=== PATIENT | female | born 1940 | race Caucasian/White ===

== ENCOUNTER 2024-04-12 06:28 | Emergency (ER) | payer OTHER, SELFPAY ==
--- NOTE | 2024-04-12 06:30 | RT ---
0624 - RT responded to rapid response call. Helped the pt get a wheelchair. Pt alert, airway patent, no apparent respiratory distress noted. Nursing staff arrived scene. Pt was taken to ER to get checked in. No respiratory care interventions required.
--- NOTE | 2024-04-12 06:35 | DI.CT.S_ITS ---
PROCEDURE: CT HEAD/BRAIN WO CON INDICATIONS: fall with head injury TECHNIQUE: Noncontrast 4.5 mm thick angled axial sections acquired from the foramen magnum to the vertex, with coronal and sagittal reformats. For radiation dose reduction, the following was used: automated exposure control, adjustment of mA and/or kV according to patient size. COMPARISON: None. FINDINGS: Image quality: Diagnostic. CSF spaces: Basal cisterns are patent. No extra-axial fluid collections. The ventricles are symmetric in size and shape. Brain: No intracranial bleeds or masses. There is cerebral volume loss for age, with resultant ventricular and sulcal prominence. There are periventricular and deep white matter chronic small vessel ischemic changes. There is intracranial internal carotid artery atherosclerosis. Skull and face: Calvarium and visualized facial bones appear intact, without suspicious lesions. Sinuses: Visualized sinuses and mastoids are clear. IMPRESSION: No evidence acute intracranial process. Comment: Final report is concordant with preliminary interpretation provided by [facility]. Dictated by: Eliu Sandoval M.D. on 04/12/2024 at 7:37 Approved by: Eliu Snadoval M.D. on 04/12/2024 at 7:37
--- NOTE | 2024-04-12 06:38 | ED_ITS ---
HPI - General Adult <Casey Waldron DO - Last Filed: 04/12/24 17:45> General Chief complaint: Fall Stated complaint: ground level fall hit her head Time Seen by Provider: 04/12/24 06:31 Source: patient Mode of arrival: Ambulatory Limitations: no limitations History of Present Illness HPI narrative: 84-year-old female. Not on anticoagulation who is here for evaluation of a head/facial injury. She was walking into the emergency department today for surgery this morning. She was scheduled to have hip replacement. She states she tripped and fell over the rug that was on the ground. She did not lose consciousness. She does sustained a bruise to the right side of her face. No neck pain. No extremity injuries. Related Data Home Medications Medication Instructions Recorded Confirmed acetaminophen 325 mg capsule 1,000 mg PO BEDTIME 04/05/24 04/12/24 (Tylenol) atorvastatin 40 mg tablet 40 mg PO DAILY 04/05/24 04/12/24 estradiol 0.05 mg-norethindrone 1 patch transdermal 2XW 04/05/24 04/12/24 0.14 mg/24 hr semiwkly transderm patch (CombiPatch) gabapentin 100 mg capsule 100 mg PO 3XD 04/05/24 04/12/24 levothyroxine 75 mcg tablet 75 mcg PO DAILY 04/05/24 04/12/24 (Synthroid) Allergies Allergy/AdvReac Type Severity Reaction Status Date / Time No Known Drug Allergies Allergy Verified 04/12/24 07:53 Review of Systems <DO Augustina Jones Last Filed: 04/12/24 17:45> Review of Systems Narrative: See HPI Patient History <DO Augustina Jones Last Filed: 04/12/24 17:45> Medical History [employer] (hard of hearing) Skin cancer Hypercholesteremia Hypothyroid Surgical History (Updated 04/05/24 @ 09:15 by Danielle Caban RN) H/O arthroscopic knee surgery History of tonsillectomy Social History household members: none Smoking Status: Former smoker alcohol intake: current Smoking Status: Former smoker alcohol intake frequency: holidays/special occasions only Substance Use Type: does not use Exam <DO Augustina Jones Last Filed: 04/12/24 17:45> Initial Vital Signs Initial Vital Signs: Vital Signs Temperature 97 F L 04/12/24 06:40 Pulse Rate 74 04/12/24 06:40 Respiratory Rate 18 04/12/24 06:40 Blood Pressure 160/90 H 04/12/24 06:40 Pulse Oximetry 100 04/12/24 06:40 Oxygen Delivery Method Room Air 04/12/24 06:40 Const General: cooperative, comfortable and No ill appearing HENDC Head: normal to inspection and normocephalic Face and sinus: other (Contusion over right cheek bone) Mouth: oral mucosae normal Eyes Pupils: PERRL EOM: EOM intact bilaterally Resp Effort & Inspection: normal respiratory effort Skin Other: Superficial contusion of her right cheekbone Neuro General: patient alert, patient awake, patient oriented x3 and moves all extremities <Salvador Edwards MD - Last Filed: 04/12/24 07:59> Initial Vital Signs Initial Vital Signs: Vital Signs Temperature 97 F L 04/12/24 06:40 Pulse Rate 74 04/12/24 06:40 Respiratory Rate 18 04/12/24 06:40 Blood Pressure 160/90 H 04/12/24 06:40 Pulse Oximetry 100 04/12/24 06:40 Oxygen Delivery Method Room Air 04/12/24 06:40 Scores <Casey Waldron DO - Last Filed: 04/12/24 17:45> [place] CT Head Rule Age <16 years old: No Patient on blood thinners: No Seizure after injury: No Exclusion: Patient NOT Excluded, Proceed to next steps GCS < 15 at 2 hr post trauma: No Suspected open or depressed skull fracture: No Any sign of basilar skull fracture (hemotympanum, raccoon eyes, Patrick's sign, CSF anita-/rhinorrhea): No Two or more episodes of vomiting: No Age greater or equal to 65 years: Yes Retrograde amnesia to the event greater or equal to 30 min: No Dangerous Mechanism (pedestrian vs. mv, occupant ejected from mv, fall from >3 ft or > 5 stairs): No Recommendation: Consider CT. The [place] Head CT Rule cannot rule out need for Imaging. GCS Giuseppe coma scale eye opening: Spontaneous Ridgeley coma scale verbal response: Orientated Giuseppe coma scale motor response: Obey commands Ridgeley coma scale total score: 15 Nexus Score for C-Spine Focal Neurologic deficit present: No Midline spinal tenderness present: No Altered level of conciousness present: No Intoxication present: No Distracting Injury Present: No Nexus Criteria for C-spine: 0 <Salvador Edwards MD - Last Filed: 04/12/24 07:59> [place] CT Head Rule Exclusion: Patient NOT Excluded, Proceed to next steps Recommendation: Consider CT. The [place] Head CT Rule cannot rule out need for Imaging. GCS Giuseppe coma scale total score: 15 Nexus Score for C-Spine Nexus Criteria for C-spine: 0 Course <Casey Waldron DO - Last Filed: 04/12/24 17:45> Orders Ordered: ED Orders 04/12/24 06:35 CT head/brain wo con Stat Vital Signs Vital signs: Vital Signs - 8 hr 04/12/24 06:40 04/12/24 07:17 Temperature 97 F L Pulse Rate 74 71 Respiratory Rate 18 16 Blood Pressure 160/90 H 164/90 H Pulse Oximetry 100 96 Oxygen Delivery Method Room Air Room Air <Salvador Edwards MD - Last Filed: 04/12/24 07:59> Orders Ordered: ED Orders 04/12/24 06:35 CT head/brain wo con Stat Vital Signs Vital signs: Vital Signs - 8 hr 04/12/24 06:40 04/12/24 07:17 Temperature 97 F L Pulse Rate 74 71 Respiratory Rate 18 16 Blood Pressure 160/90 H 164/90 H Pulse Oximetry 100 96 Oxygen Delivery Method Room Air Room Air Medical Decision Making <Casey Waldron DO - Last Filed: 04/12/24 17:45> [facility] Narrative Medical decision making narrative: This was obviously a mechanical fall. Given her age and the fact that she does have a contusion of the right side of her cheek a CT scan of the head was ordered. Cervical spine was cleared by nexus criteria. No extremity injuries. <Salvador Edwards MD - Last Filed: 04/12/24 07:59> Imaging Data CT scan - head: Radiologist's Impression: No acute finding [facility] Narrative Medical decision making narrative: This was obviously a mechanical fall. Given her age and the fact that she does have a contusion of the right side of her cheek a CT scan of the head was ordered. Cervical spine was cleared by nexus criteria. No extremity injuries. After history and exam CT head [facility] Medical records reviewed: No recent visit with a complaint Differential considered: Includes but not limited to facial fracture/intracranial bleed/concussion/facial contusion Lab Test results independently reviewed as above. Pertinent findings: None indicated Independently reviewed EKG none indicated Imaging studies independently reviewed: CT head no acute finding Consultations: Patient to see orthopedic surgeon and anesthesia this morning after discharge Treatments: None indicated Re-evaluations: 7:22 a.m.. Updated patient and family at bedside. Imaging is reassuring exam is reassuring. Patient to go to the operating room now to speak with her surgeon and anesthesia Discussion: Appropriate for discharge home exam and imaging is reassuring. Patient to see Orthopedic surgery and anesthesiologist this morning Diagnosis: Facial contusion 7:00 a.m.. Grace: ?sign out from Dr Waldron, CT imaging is pending. Orthopedics and anesthesia had been waiting to find out for results of CT for surgery this morning. Discharge Plan Departure Patient Disposition: Home Clinical Impression: Contusion of face Qualifiers: Encounter type: initial encounter Qualified Code(s): S00.83XA - Contusion of other part of head, initial encounter Instructions: DI for Contusion, DI for Closed Head Injury Activity Restrictions/Additional Instructions: Your exam and CT scan imaging are reassuring. Please see anesthesia and your surgeon this morning for further plans of your surgery. Return if worse if any questions or concerns Prescriptions: No Action atorvastatin 40 mg tablet 40 mg PO DAILY levothyroxine [Synthroid] 75 mcg tablet 75 mcg PO DAILY gabapentin 100 mg capsule 100 mg PO 3XD CombiPatch 0.05-0.14 mg/24 hr patch semiweekly 1 patch transdermal 2XW acetaminophen [Tylenol] 325 mg Capsule 1,000 mg PO BEDTIME Referrals: Dolores Alcala PA-C [Primary Care Provider] - Stand Alone Forms: Patient Portal/API
[2024-04-12 06:40] VITALS: BP 160/90; PULSE 74; RESP 18; TEMP 36.1; O2SAT 100; BMI 52.2
[2024-04-12 07:17] VITALS: BP 164/90; PULSE 71; RESP 16; O2SAT 96
--- NOTE | 2024-04-12 07:24 | PC.NURSE ---
Pt DC'd from ED. OR charge called and made aware pt is ready for transport to surgery this morning to replace L hip. Pt AAOx3, ambulated to wheelchair for transport to surgery.
== END 2024-04-12 07:25 | disposition home or self-care (01) ==
PROVIDERS: Emergency Provider Emergency Medicine; PCP Physician Assistant; Referring Provider Emergency Medicine
DX: S00.83XA Contusion of other part of head, initial encounter (principal); W18.30XA Fall on same level, unspecified, initial encounter
CPT/HCPCS: 70450; 99281

== ENCOUNTER 2024-04-12 07:38 | Day surgery (SDC) | payer OTHER, SELFPAY ==
[2024-04-05 08:22] VITALS: BMI 24.5
[2024-04-12] VITALS (13 sets, daily range): BP systolic 94–168; BP diastolic 64–103; PULSE 55–109; RESP 14–19; TEMP 36–37.2; O2SAT 95–99; BMI 25.2; BMI 24.9
--- NOTE | 2024-04-12 | DI.RAD.S_ITS ---
PROCEDURE: [id number] W PEL IF PERFORMED INDICATIONS: ANTERIOR TOTAL LEFT HIP TECHNIQUE: 5 intraoperative fluoroscopic images of left hip. COMPARISON: None. FINDINGS: Intraoperative fluoroscopic images shows left total hip arthroplasty. Left hip alignment is anatomic. IMPRESSION: Fluoro guidance was provided intraoperatively for left total hip arthroplasty. Dictated by: Luiz Atkins M.D. on 04/12/2024 at 12:12 Approved by: Luiz Atkins M.D. on 04/12/2024 at 12:12
--- NOTE | 2024-04-12 06:00 | DI.RAD.S_ITS ---
PROCEDURE: XR HIP W PEL IF DONE LT 2V INDICATIONS: total left hip anterior post op TECHNIQUE: 2 views of the hip were acquired. COMPARISON: [facility], CR, [id number] W PEL IF PERFORMED, 04/12/2024, 9:34. FINDINGS: Bones: Left hip arthroplasty. Moderate right hip arthrosis. Soft tissues: Postoperative changes IMPRESSION: Postoperative changes following left hip arthroplasty. Dictated by: Iftikhar Salinas M.D. on 04/16/2024 at 12:18 Approved by: Iftikhar Salinas M.D. on 04/16/2024 at 12:19
--- NOTE | 2024-04-12 07:32 | SUR.OPER ---
Supine on padded [place] table with bilateral legs secured in padded positioning boots and suspended in positioning spars, operative leg in traction per surgeon. Head on one pillow. Arms secured on padded armboards<90 degrees abduction. Padded perineal post in place per surgeon.
--- NOTE | 2024-04-12 07:39 | PM.PREOP ---
Pre-operative Note Interval Note History & Physical reviewed/Exam performed by Physician: Yes Changes to H&P: Yes H&P completed within 30 days and has changed as indicated here:: Cecile fell coming into the hospital today for her elective hip surgery and hit her head. A rapid response was called and a CT scan of her head was obtained which was normal. I saw her in the preoperative holding area. She is mentating appropriately and at her baseline. She had no discernible signs of a concussion or of facial trauma other than a bruise over her orbit. I performed a brief neurological exam including having her track my fingers during stereotyped movements with her eyes to observe her ophthalmologic tracking which was normal. She reports that I feel fine and is eager to move forward with surgery. Given the normal head CT scan we will proceed as originally planned.
[2024-04-12] MEDS: ACETAMINOPHEN 325 MG TABLET 975 MG PO (07:44)
[2024-04-12] MEDS: MELOXICAM 7.5 MG TABLET PO (07:45)
[2024-04-12] MEDS: LACTATED RINGERS 1,000 ML 42 ML IV ×2 (07:45→09:16)
--- NOTE | 2024-04-12 08:16 | SUR.PREOP ---
Patient delayed to pre-op area by 60 minutes after suffering a mechanical fall in the main entrance; patient evaluated by ER physician with no acute injury and cleared for surgery to proceed by ER physician, Orthopedic Surgeon, Dr Mi; and anesthesia provider, Sharron Grayson CRNA; family and patient agreeable to proceeding as planned.
[2024-04-12] MEDS: CEFAZOLIN 2 GM/100 ML PREMIX 100 ML IV ×2 (08:25→16:46)
[2024-04-12] MEDS: TRANEXAMIC ACID 1,000 MG VIAL 1000 MG INJ ×2 (08:30→09:56)
[2024-04-12] MEDS: ROPIVACAINE/EPI/CLONIDINE/KET 50 ML SYRINGE INJ (08:46)
--- NOTE | 2024-04-12 10:00 | P.OP_ITS ---
Operative Date/Time/Diagnoses Date of procedure: 04/12/24 Pre-op diagnosis: Left hip osteoarthritis Post-op diagnosis: same Procedure & Clinicians Procedure: Left total hip arthroplasty with placement of cerclage cable for calcar split Same procedure as scheduled: Yes Surgeon: Indio Mi Graduate Recruiter: Sandra Diaz Anesthesia Type: General, Spinal and Local Operative Notes Estimated Blood Loss (mL): 350 Procedure in detail: Left Uncemented Direct Anterior Depuy Total Hip Arthroplasty: Implants: * [place] Gription size 52 cup? * Actis femoral stem size 9 high offset? * 36 mm +1.5 ceramic femoral head? Procedure Summary: This 84-year-old female patient had left hip arthritis and was counseled extensively regarding elective total hip arthroplasty. I obtained a DEXA scan of her left hip for preoperative planning purposes which indicated that she had a high T-score for her age, indicative of overall good bone quality. I therefore elected to utilize uncemented fixation for her stem side during today's procedure. As she was walking into the hospital today she caught her foot on the carpet and fell, hitting her head. A rapid response was called and a CT scan of her head was obtained which was normal. I evaluated her and found her to be at her baseline mental status. Given her normal CT scan and normal neurologic status we discussed the situation with the patient and she wished to proceed with the surgery as previously scheduled. Intraoperatively I found that the templates was likely undersized as her cup was 1 size larger than the templated size. After broaching to my templated size I found that this had sunk further than anticipated based on my neck cut so I went 1 size up on the stem as well. After trialing the hip I found it reduction was difficult, leg length appeared to have been increased relative to the nonoperative side, and offset was diminished. I therefore planned to sink the size 9 broach further down the canal to decrease leg lengths and moved from a standard offset to a high offset stem. During the process of sinking the broach I noted a split in the calcar. This was nondisplaced. I returned to neutral hip extension and placed a calcar cable before placing definitive implants. I did obtain a fluoroscopic image with no broach in place to demonstrate a lack of propagation of the calcar split down the femur. I dissected down the femur to identify the full extent of it. I will have the patient remain in the hospital overnight given the fall she had this morning as she has clearly a fall risk. She will still be weight-bearing as tolerated. I will still plan to discharge her home, hopefully tomorrow, but if she is having any difficulty mobilization I would not hesitate to keep her in the hospital until Monday. Procedure in Detail: This patient was seen preoperatively and evaluated for hip pain which was refractory to numerous nonoperative treatment modalities. Their hip pain correlated with radiographic changes demonstrating significant degeneration in the hip joint. The risks and benefits of continued nonoperative management versus operative management were discussed at length and all of the patient?s questions were answered. Additional educational materials providing further details beyond our discussion in clinic were provided via a publicly available patient education video which included the incidence of medical complications associated with total hip arthroplasty, reasons for revision following total hip arthroplasty, and patient satisfaction rates following total hip arthroplasty. T hat video can be accessed at [email or web address] . With this understanding of the risks inherent to the procedure, the patient elected to move forward with operative management. Following preoperative optimization, the patient was scheduled for surgery. The patient was met in the preoperative holding area the day of the procedure and all questions were answered. The patient?s nares were swabbed with betadine in order to decolonize them from MRSA. Informed consent was signed and the left limb was marked with indelible ink.? The patient was brought back to the operating room where anesthesia was induced. The patient was transferred to the Grafton table and all bony prominences were padded. The operative site was prepped and draped in the usual sterile fashion. Prior to incision, tranexamic acid and cefazolin were administered. Operative templating images were displayed demonstrating the anticipated implant sizes and correct operative extremity. A timeout procedure was performed verifying the patient?s identity, medical comorbidities, allergies, relevant medications, anesthesia type and the surgical plan. All present were in agreement. The assistance of a physician switchboard operator assistant was required for positioning, room setup, soft tissue retraction and wound closure. Without this assistance, the procedure would have been significantly more challenging and time consuming.?? A direct anterior approach to the hip was utilized. This was performed with a longitudinal incision through a Heuter interval. The incision was planned 2 cm distal and 2 cm lateral to the ASIS extending towards the lateral patella, in line with the muscle body of the TFL. Following incision, the subcutaneous tissue was dissected while taking care to avoid injury to the lateral femoral cutaneous nerve. The fascia overlying the TFL was identified by dissecting off the overlying fat and identifying perforating vessels to the TFL. The TFL fascia was incised and dissected away from the medial border of the TFL. A cobra retractor was placed over the superior femoral neck between the abductors and the hip capsule and used to reflect the TFL laterally. A [place] self-retainer was then placed in the distal aspect of the wound between the TFL and the rectus femoris. This was tensioned to open up the direct anterior interval and the lateral circumflex vessels were identified and coagulated using electrocautery. The floor of the TFL fascia was incised, exposing the pericapsular fat overlying the hip capsule. A second cobra retractor was placed on the inferior femoral neck. A double-bent soft tissue retractor was placed on the anterior wall of the acetabulum and used to tension the reflected head of rectus femoris, which was then released in order to limit soft tissue tension. A capsulotomy was made in the midline of the anterior hip capsule in line with the femoral neck ending at the vastus tubercle. The double-bent retractor was removed in order to limit the amount of time that a soft tissue retractor remained on the anterior wall and protect the femoral nerve. Tag stitches were placed in the superior and inferior leaflets of the hip capsule. An [place] soft tissue retractor was introduced over the tag stitches and tensioned in the interval between the rectus femoris and the TFL in order to retract and protect those muscles. The cobra retractors were replaced intracapsularly, with one over the superior neck in the pocket created by the base of the greater trochanter and the other on the femoral head. The capsulotomy was extended laterally to the base of the greater trochanter and medially to the lesser trochanter. This required externally rotating the hip. Once the lesser trochanter had been identified, a neck cut was planned according to measurements from preoperative templating. A ruler was cut at the length measured between the superior aspect of the lesser trochanter and the collar of the prosthesis. This line was extended towards the inferior aspect of the lateral cobra retractor to plan a cut which would leave minimal residual femoral neck laterally. The neck was cut at 60 degrees of external rotation along that line. A second cut was performed to remove a large napkin ring and facilitate head extraction. The napkin ring cut and femoral head were removed.?? A broad anterior wall retractor was placed between the labrum and the anterior capsule so that the anterior capsule would prevent capturing and pinching the femoral nerve anteriorly. An additional retractor was placed on the posterior wall. External rotation and traction were applied through the G[place]on table so that the cut surface of the femoral neck would not restrict access to the acetabulum. The labrum was excised sharply and the pulvinar was excised with electrocautery to limit bleeding from branches of the obturator artery. Acetabular reamers were selected based on preoperative templating and measurements of the excised femoral head. These were introduced into the acetabulum. Fluoroscopy was utilized to replicate a standing AP pelvis radiograph by centering over the pelvis, rotating until there was appropriate symmetry between the obturator foramen, and introducing caudal tilt to match the position of the pubic symphysis relative to the sacrococcygeal junction according to the patient?s anatomy. Fluoroscopy was utilized to ensure appropriate reaming depth. Once satisfied with the reaming depth corresponding to the preoperative template and the pinch fit between the columns, an appropriate sized acetabular cup was selected which would provide 1 mm of press-fit. This cup was introduced and manipulated until appropriate abduction and anteversion angles were obtained with careful attention to appropriate abduction and anteversion angles as evaluated by the position of the cup relative to the anterior and posterior lopez of the acetabulum and the AP fluoroscopy which recreated the patient?s standing radiograph. The cup was impacted into place. Peripheral osteophytes were removed. The acetabular liner was then placed with care to ensure locking of the locking mechanism.? Attention was then turned to the femur. All retractors were removed, traction was released, a retractor was placed in the interval between the hip capsule and the gluteus minimus, and the hip was externally rotated to 90 degrees. Traction was applied through the Grafton table to tension the lateral capsule and this was released using electrocautery. Traction was released and a [place] hook was placed posteriorly around the proximal femur at the level of the vastus ridge. The table height was lowered in order to restrict the tension on the anterior structures during hip hyperextension to limit the risk of femoral nerve palsy. With traction off and the hip at 90 degrees of external rotation, the hip was hyperextended and adducted while manually elevating the femur away from the acetabulum with the G[place]on hook to ensure it would not be caught behind the greater trochanter. An asymmetric retractor was placed over the calcar and a broad double-pronged retractor was placed over the greater trochanter. The tag stitch capturing the lateral leaflet of the capsule was moved to the medial side, leaving the conjoined and piriformis tendons isolated in the face of the greater trochanter. The hip was externally rotated and elevated. A release of the conjoined tendon was not necessary in order to obtain adequate exposure for broaching. The canal was opened with an opening broach and a rasp was used to remove cancellous bone. A rongeur was used to remove the residual lateral bone at the base of the greater trochanter to avoid placing the stem in varus. The femur was then broached to the appropriate sized stem yielding good rotational fit and fill of the canal as well as appropriate version of the stem trial. Neck and head trials were placed, all retractors were removed and the hip was returned to neutral abduction and extension. I then reduced the hip. Initial trialing was performed with a size 9 broach, a standard offset neck and a +1.5 head. I initially attempted to reduce the hip myself and found that I could not get it reduced without the aid of an switchboard operator assistant through the fracture table. The hip was stable with maximum external rotation. I then locked the hip in 45 degrees of external rotation and dropped it to the floor with traction off which demonstrated no instability. An AP pelvis fluoroscopic image matching the preoperative standing radiograph with both lesser trochanters visible and both hips in 40 degrees of external rotation demonstrated that the operative site was slightly long and it offset was diminished. AP and lateral hip fluoroscopic images were obtained to evaluate the broach size which demonstrated that I could likely sink the broach slightly further down the canal. The hip was dislocated and I returned to the broaching position. Based on my evaluation during initial trialing I planned to sink the size 9 broach slightly further, calcar planed, transitioned to a high offset stem to add offset, and used the additional broach depth to compensate for her excessive leg length. During this process I noted a split in the calcar. This was nondisplaced. I removed the broach, dissected to the full extent of the split and returned to neutral extension. I passed a cable around the femur and tensioned this ensuring that it was across the area where the calcar split had occurred. I then returned to the broach in position, we broached with the size 9 broach to ensure maximum canal fill, repeated the calcar planning process, and inserted the size 9 high offset stem. The definitive stem was placed and the trunnion was cleaned and dried. I placed a ceramic head onto the trunnion and impacted it into place on the [place] taper.?? All retractors were removed and the hip was reduced. A dilute mixture of betadine and peroxide was used to bathe the soft tissues during final fluoroscopic assessment. Appropriate component positioning was confirmed on an AP pelvis radiograph with the operative and nonoperative legs in 40 degrees of external rotation, evaluating leg length and offset. Appropriate stem fill was evaluated on AP and lateral hip radiographs. No fractures were identified on these radiographs. There was no hip instability with maximum (115?) external rotation as well as a 45 degree drop test. The hip was copiously irrigated with pulse lavage. The capsule was closed with absorbable interrupted suture. The TFL fascia was closed with barbed suture while carefully protecting the lateral femoral cutaneous nerve from entrapment. A mixture of Ropivacaine, Epinephrine, Clonidine and Toradol was infiltrated throughout the soft tissues. The skin was closed with 2-0 and 3-0 sutures. Surgical glue was applied and a soft dressing was placed.??The sponge, instrument and needle counts were reported as being correct at the end of the case.??No obvious complications occurred. The patient was transferred from the [facility] back to a stretcher. The patient emerged from anesthesia without difficulty and was taken to the PACU in a stable condition.? Plan for aftercare: * Anterior hip precautions * Weightbearing as tolerated * Aspirin 81 twice per day for DVT prophylaxis * Anticipate discharge home Monday or Monday * Change into normal clothes upon arrival on the hospital floor * Mobilize in the halls as much as is logistically possible. If physical therapy is unavailable for mobilization, then patient should mobilize with nursing staff * Multimodal pain regimen with no IV opioids ordered * Apply ice machine to operative hip. Ensure that sufficient ice is in the chamber for the pad to remain cold * Follow up at [facility] in 2 weeks * Detailed postoperative instructions available at [email or web address]
[2024-04-12] MEDS: HYDROMORPHONE 1 MG INJ IV ×4 (10:50→11:05)
[2024-04-12] MEDS: fentaNYL 100 MCG/2 ML INJ IV ×4 (10:50→11:05)
[2024-04-12] MEDS: hydrOXYzine 50 MG/ML INJ 25 MG IM (10:55)
[2024-04-12] MEDS: IBUPROFEN 600 MG TABLET PO (12:45)
[2024-04-12] MEDS: OXYCODONE IR 5 MG TABLET PO ×2 (12:45→16:44)
[2024-04-12] MEDS: LACTATED RINGERS 1,000 ML 100 ML IV (12:51)
--- NOTE | 2024-04-12 14:50 | PT.IIE ---
Current Diagnoses Unilateral primary osteoarthritis, left hip (04/12/24) Surgery Performed Operation Date: 04/12/24 07:45 Actual Procedures p Total Hip Arthroplasty/Anterior Approach(Left) - Indio Mi MD Surgical History (Last Updated 04/05/24 @ 09:15 by Danielle Caban, LUCIA) H/O arthroscopic knee surgery History of tonsillectomy Medical History (Last Reviewed 04/12/24 @ 06:40 by Casey Waldron DO) [place] (hard of hearing) Hypercholesteremia Hypothyroid Skin cancer Physical Therapy Inpatient Evaluation/Re-Eval M1 PT/OT-IP Prior Functional Status Start: 04/12/24 16:05 Freq: NEEDED Status: Active Protocol: Document 04/12/24 14:50 AB (Rec: 04/12/24 16:18 AB [id number]) Medical Review Prior Functional Status Medical History Reviewed Yes Communication able to make needs known; with confusion Mobility and Gait pt stated that she was modified independent with all mobilities and ambulation without AD but occasionally uses a FWW depending on hip pain Social History Household Members none Living Arrangements House Number of Floors (Floors) One Floor Number of Stairs To Enter/Railing? 4 steps Bwide rails to enter the house Home Environment High Toilet,Walk in Shower,Tub /Shower Doors,Built-In Shower Seat Home Equipment Front Wheel Walker,Hand Held Shower Additional Social History Comment daughter( from [place]) stated that she will be staying with pt for ~ 1 month to assist her M2 PT-IP Current Condition Start: 04/12/24 16:05 Freq: NEEDED Status: Active Protocol: Document 04/12/24 14:50 AB (Rec: 04/12/24 16:18 AB [id number]) Physical Therapy Current Condition Current Condition Evaluation Date 04/12/24 Treatment Diagnosis s/p L LIZETH anterior; difficulty in walking Onset Date 04/12/24 M3 PT-IP Subjective Start: 04/12/24 16:05 Freq: NEEDED Status: Active Protocol: Document 04/12/24 14:50 AB (Rec: 04/12/24 16:18 AB [id number]) Subjective Physical Therapy Visit Type Type Initial Evaluation Visit Start Time 14:50 Visit Stop Time 15:55 Number of FLYING I INSTRUCTOR Visits 0 Physical Therapy Visit Comments Patient Comments agreeable to do PT Therapy Pain Assessment Pain When Pain Assessed At Rest Location Left Hip Scale Used increases with mobility: lots o f pain per pt with movement Pain Management Techniques Apply Cold,Distraction, Modification of Treatment,Re- positioning,Timing of Activity with Medications M4 PT-IP Mobility and Gait Start: 04/12/24 16:05 Freq: NEEDED Status: Active Protocol: Document 04/12/24 14:50 AB (Rec: 04/12/24 16:18 AB [id number]) PT-Bed Mobility Assessment Supine to Sit Supine to Sit Maximum Assistance,1 Person Assistance,Bedrails Sit to Supine Sit to Supine Maximum Assistance,1 Person Assistance,Bedrails PT-Transfer Assessment Sit to and From Stand Sit to and from Stand Maximum Assistance,1 Person Assistance,2 Person Assistance ,Use of Upper Extremities Equipment Transfer Assistive Device Gait Belt,Front Wheeled Walker Orthotic/Prosthetic Devices or Brace: No Comments Mobility Comments pt in bed asleep. woke pt up. pt with confusion and needs clarification with all info provided. obtained PLOF and home set up. educated pt regarding L hip anterior precautions. pt with confusion and memory issues and needs cues for precautions and safety with all tasks. pt restless with c/o increase L hip pain and wants to move and get up. pt completed supine to sit max A and max cues. pt sat on EOB. max A for scooting and positioning in bed. pt used bed rail for sitting balance. completed sit to stand x 2 attempts requiring max A x 1-2 and max cues. pt ambulated in room using FWW mod A and max cues ~ 12 ft. pt sat on EOB. completed sit to supine max A for LE elevation to bed and max cues. positioned pt in bed . call light and table placed within reach. pt agreed to do caregiver training and gave PT permission to call her daughter. called pt's daughter Michael will come in tomorrow at ~ 9 am for caregiver training. Gait Assessment Gait Gait Assistance Required: Moderate Assistance,1 Person Assist Distance (Feet) 12 Able to Maintain Weight Bearing Status Yes During Gait Assistive Devices Assistive Device Gait Belt,Front Wheeled Walker Orthotic/Prosthetic Devices or Brace: No Factors Limiting Gait Function Factors Limiting Gait Function Decreased Activity Tolerance, Decreased Strength,Difficulty Following Directions,Limited Range of Motion,Pain,Poor Balance,Poor Safety Awareness PT-Balance Assessment Sitting Balance and Reactions Static Sitting Balance Ability Good Dynamic Sitting Balance Ability Fair Standing Balance and Reactions Static Standing Balance Ability Fair Dynamic Standing Balance Ability Poor Device Used FWW M5 PT-IP Objective Assessments Start: 04/12/24 16:05 Freq: NEEDED Status: Active Protocol: Document 04/12/24 14:50 AB (Rec: 04/12/24 16:18 AB [id number]) Orientation Orientation/Cognition Level of Alertness Confusional State Orientation Name,Situation Language Function Ability No Deficits Noted Safety Awareness Decreased Safety Awareness Memory Description Short Term Impaired,Chcf Impaired Gross Range of Motion Lower Extremity ROM Assessment Within Functional Limits Strength Lower Extremity Strength Assessment Left Impaired Hip 2+/5 Knee 3+/5 Coordination Assessment Gross Coordination Gross Coordination WNL Sensation Assessment Sensation Gross Sensation WNL Muscle Tone Muscle Tone WNL Yes M6 PT-IP Treatment Start: 04/12/24 16:05 Freq: NEEDED Status: Active Protocol: Document 04/12/24 14:50 AB (Rec: 04/12/24 16:18 AB [id number]) Physical Therapy Treatment Education Education Provided Precautions,Weight Bearing Status,Post-Op Packet,Safety M7 PT-IP Assessment and Plan Start: 04/12/24 16:05 Freq: NEEDED Status: Active Protocol: Document 04/12/24 14:50 AB (Rec: 04/12/24 16:18 AB [id number]) PT Summary Assessment and Plan Potential Rehabilitation Potential Fair Status of Condition at Evaluation Evolving Summary Impairments Pain,ROM,Strength,Balance, Coordination,Sensation,Tone, Cognition,Bed Mobility, Transfers,Gait,Activity Tolerance Assessment Summary pt is an 84 y/o F s/p L LIZETH anterior precautions POD 0. pt has L hip anterior precautions and is WBAT. pt requiring max A for bed mobility, max A for sit to stand and mod A for ambulation using FWW ~ 12 ft. pt required max cues for precautions and safety. caregiver training set up for tomorrow at 9 am with pt and kylee. will continue to assess progress. pt stated that she has outpt PT set up. Goals Bed Mobility Goal Independent Transfer Goal Independent,Front Wheeled Walker Gait Goal Independent,Front Wheel Walker Gait Distance 150 Other Goals up/down 4 steps 1 rail SBA Days to Meet Goals 5 Frequency of Treatment Frequency Of Treatment Twice a Day Treatment Plan Physical Therapy Treatment Plan Bed Mobility Training,Transfer Training,Gait Training, Therapeutic Exercise,Balance Retraining,Post Op Education, Discharge Planning,Hot or Cold Pack,Neuromuscular Re-ed, Coordination Retraining,Manual Therapy Other Recommendations and Next Treatment caregiver trainin04/13/24 @ [facility] 9 am Precautions Anterior Hip Precautions No Hip Extension,No Hip External Rotation Weight Bearing Status Weight Bearing Status Weight Bear as Tolerated Allowed Weight Bearing Amount (enter % LLE WBAT or #) (%) Recommendations To Nursing Amount of Assist Needed 1 Person Assist Discharge Recommendations PT Discharge Recommendations Home with 06/03 Assist Available,Outpatient PT Transportation Needs at Discharge Private Vehicle
--- NOTE | 2024-04-12 16:30 | OT.IP.EVAL ---
Current Diagnoses Unilateral primary osteoarthritis, left hip (04/12/24) Surgery Performed Operation Date: 04/12/24 07:45 Actual Procedures p Total Hip Arthroplasty/Anterior Approach(Left) - [place] Mi MD Past Medical History (Last Reviewed 04/12/24 @ 06:40 by Casey Waldron DO) [place] (hard of hearing) Hypercholesteremia Hypothyroid Skin cancer Surgical History (Last Updated 04/05/24 @ 09:15 by Danielle Caban RN) H/O arthroscopic knee surgery History of tonsillectomy Occupational Therapy Inpatient Evaluation/Re-Eval M1 PT/OT-IP Prior Functional Status Start: 04/12/24 16:05 Freq: NEEDED Status: Active Protocol: Document 04/12/24 16:38 [facility] (Rec: 04/12/24 16:55 [facility] [id number]) Medical Review Prior Functional Status Medical History Reviewed Yes Communication able to make needs known; with confusion Mobility and Gait pt stated that she was modified independent with all mobilities and ambulation without AD but occasionally uses a FWW depending on hip pain Activities of Daily Living and IADL's Pt able to do and in lots of pain. Social History Household Members none Living Arrangements House Number of Floors (Floors) One Floor Number of Stairs To Enter/Railing? 4 steps Bwide rails to enter the house Home Environment High Toilet,Walk in Shower,Tub /Shower Doors,Built-In Shower Seat Home Equipment Front Wheel Walker,Hand Held Shower Additional Social History Comment daughter( from [place]) stated that she will be staying with pt for ~ 1 month to assist her M2 OT-IP Current Condition Start: 04/12/24 16:37 Freq: Status: Active Protocol: Document 04/12/24 16:38 [facility] (Rec: 04/12/24 16:55 [facility] [id number]) Occupational Therapy Current Condition Current Condition Evaluation Date 04/12/24 Treatment Diagnosis S/P L LIZETH anterior approach Diagnosis Onset Date 04/12/24 Post Operative Precautions Anterior Hip Precautions No Hip Extension,No Hip External Rotation M3 OT- IP Subjective and Pain Start: 04/12/24 16:37 Freq: Status: Active Protocol: Document 04/12/24 16:38 [facility] (Rec: 04/12/24 16:55 [facility] [id number]) OT- Subjective Occupational Therapy Visit Type Type Initial Evaluation Visit Start Time 16:06 Visit Stop Time 16:30 Occupational Therapy Visit Comments Patient Comments Pt agreed to get up to the edge of the bed. Patient/Caregiver Goals To go home. OT Pain Assessment Pain When Pain Assessed During Mobility Pain Present Pain Present Pain Reported Location Left Hip Pain Behaviors Guarding,Holding Area M4 OT- IP ADL's Start: 04/12/24 16:37 Freq: Status: Active Protocol: Document 04/12/24 16:38 [facility] (Rec: 04/12/24 16:55 [facility] [id number]) OT ADL-Dressing General Eval Lower Body Dressing Ability Maximum Assistance Comments OT Dressing Comments Able to show pt inverter and clipper and sock aid for LB dressing needs . Pt states looking to get a sock aid. OT ADL-Toileting Comments OT Toileting Comments Suggested pt get a BSC. Pt states to wear pads at night so not having to hurry to the bathroom. OT ADL-Bathing Comments OT Bathing Comments Pt states her daughter to assist her. Educated to cover the dressing during showering needs. Notified nursing aid as pt's nurse not available that pt's dressing on her hip not fully intact and nursing aid states to let the nurse know. M5 OT- IP IADL's Start: 04/12/24 16:37 Freq: Status: Active Protocol: Document 04/12/24 16:38 [facility] (Rec: 04/12/24 16:55 [facility] [id number]) OT-Instrumental Activities of Daily Living Home Safety Awareness Home Safety Comments Pt is a bit groggy at this time and best to have assist for all ADL and mobility needs . M6 OT- IP Functional Cognition Start: 04/12/24 16:37 Freq: Status: Active Protocol: Document 04/12/24 16:38 [facility] (Rec: 04/12/24 16:55 [facility] [id number]) Cognitive Factors Limiting Selfcare Function Cognitive Ability Level of Alertness Drowsy Patient Orientation Name,Place,Situation Attention Span Ability Capable of Focused Attention, Unable to Sustain Attention Ability to Follow Commands Able to Follow One Step Commands with Increased Time, Able to Follow One Step Commands with Repetition Cognitive Comments Cognitive Assessment Comments Pt still very groggy from surgery and not able to recall her precautions. Pt states prior had some difficulty with her STM. OT- Vision and Hearing OT- Hearing Assessment OT- Hearing Assessment Hearing Impaired,Use of Hearing Aids OT- Vision Assessment Visual Acuity Glasses All The Time Visual Attentiveness WFL Occular Pursuits WFL M7 OT- IP Mobility and Balance Start: 04/12/24 16:37 Freq: Status: Active Protocol: Document 04/12/24 16:38 [facility] (Rec: 04/12/24 16:55 [facility] [id number]) OT- Bed Mobility Assessment Supine to Sit Supine to Sit Assist Minimal Assistance Sit to Supine Sit to Supine Assist Moderate Assistance Scooting Scooting to Edge of Bed Contact Guard Assistance OT-Transfer Assessment Comments Mobility Comments Pt needing JOELLE to assist to move her LLE to the edge of the bed and MOD AX1 to get back in at this time. Able to show pt use of gait belt to assist if needed. Pt not wanting to stand at this time and feeling too groggy and in pain. OT- Balance Assessment Sitting Balance and Reactions Static Sitting Balance Ability Normal Dynamic Sitting Balance Ability Good M8 OT- IP Objective Assessments Start: 04/12/24 16:37 Freq: Status: Active Protocol: Document 04/12/24 16:38 [facility] (Rec: 04/12/24 16:55 [facility] [id number]) OT Gross Range of Motion Upper Extremity Range of Motion Assessment Within Functional Limits OT Strength Upper Extremity Strength Assessment Within Functional Limits M9 OT- IP Assessment and Plan Start: 04/12/24 16:37 Freq: Status: Active Protocol: Document 04/12/24 16:38 [facility] (Rec: 04/12/24 16:55 [facility] [id number]) OT Summary Assessment and Plan Potential Rehabilitation Potential Good Analytic Complexity at Evaluation Low Summary OT Impairments Pain,Strength,Balance, Functional Cognition, Functional Mobility,Dressing, Toileting,Bathing,Toilet Transfers,Shower Transfers, Activity Tolerance Progress Towards Goals Slow Progress due to Pain,Slow Progress due to Medical Issues Assessment Summary Pt low complexity and main barriers are steps, pain, and still very groggy from surgery . ABle to do over OT needs for ADL'd and how to incorporate her anterior precautions for her needs. Pt will benefit from LB dressing equipment and BSC. Pt will benefit from assist and outpt PT. Goals Grooming Goal Independent Dressing Goal Standby Assistance,Mortgage Processor, Sock Aid Toileting Goal Standby Assistance Bathing Goal Minimal Assistance Toilet Transfer Goal Standby Assistance Shower Transfer Goal Standby Assistance Days to Meet Goals 5 Frequency of Treatment Other frequency 5x/week Treatment Plan OT Treatment Plan ADL Training,Functional Mobility,Patient/Family Education,Discharge Planning Discharge Recommendations Home Equipment Needs BSC, LB dressing equipment Transportation Needs at Discharge Private Vehicle
[2024-04-12] MEDS: GABAPENTIN 100 MG CAPSULE PO ×2 (16:44→21:15)
[2024-04-12] MEDS: ACETAMINOPHEN 325 MG TABLET 650 MG PO ×2 (16:45→21:14)
--- NOTE | 2024-04-12 18:58 | PC.NURSE ---
Has not voided since surgery. Has been bladder scanned x2. Last bladder scan was 123mls. Pt has had minimal pain and is sleeping at this time.
--- NOTE | 2024-04-12 21:02 | PM.PN.1 ---
Subjective Subjective Interval history: Cecile is seen postoperatively. She appears to be mentating at baseline and is conversant and appropriate, asking appropriate questions. She did have a fall while coming into the hospital today and hit her head. She had a head CT which was negative prior to our decision to move forward with her scheduled surgery. There was a calcar split during broaching in her case which was managed with placement of a cerclage cable. Her weight-bearing is not restricted because of this, she is still weightbearing as tolerated. I do not anticipate it will affect her recovery process. She has had significant amounts of pain since surgery however she has consistently reported that this pain is in her back. She localizes this near her SI joint on the operative side. I will continue monitoring this for the time being but may initiate further workup in the outpatient setting if her back pain does not resolve during her initial postoperative recovery. Exam Vital Signs (past 8 hours): - 04/12/24 14:00 04/12/24 15:00 04/12/24 20:52 Temperature 97.8 F 99.0 F Pulse Rate 66 72 Respiratory Rate 18 Blood Pressure 110/70 94/64 106/66 Pulse Oximetry 95 Oxygen Delivery Method [facility] Medical History [place] (hard of hearing) Skin cancer Hypercholesteremia Hypothyroid Surgical History (Updated 04/05/24 @ 09:15 by Danielle Caban RN) H/O arthroscopic knee surgery History of tonsillectomy Social History household members: none Smoking Status: Former smoker alcohol intake: current Assessment & Plan Time-Based Coding :: [TOTAL MINUTES] spent with patient and on the chart (including review of chart, obtaining history, exam, reviewing outside data, placing orders, documenting exam and treatment plan, and counseling patient) on [DATE]. Quality VTE Deep Vein Thrombosis/Pulmonary Embolism Present on Admission: No
[2024-04-12] MEDS: ATORVASTATIN 20 MG TABLET 40 MG PO (21:14)
[2024-04-12] MEDS: ASPIRIN EC 81 MG TABLET PO (21:14)
[2024-04-12] MEDS: DOCUSATE 100 MG CAPSULE PO (21:15)
[2024-04-13] MEDS: IBUPROFEN 600 MG TABLET PO ×3 (00:12→11:40)
[2024-04-13] MEDS: CEFAZOLIN 2 GM/100 ML PREMIX 100 ML IV (00:12)
[2024-04-13] MEDS: LACTATED RINGERS 1,000 ML 100 ML IV (00:15)
[2024-04-13] MEDS: ACETAMINOPHEN 325 MG TABLET 650 MG PO ×2 (04:09→11:39)
[2024-04-13] MEDS: OXYCODONE IR 5 MG TABLET PO ×3 (04:10→11:40)
[2024-04-13] MEDS: LEVOTHYROXINE 75 MCG TABLET PO (06:34)
[2024-04-13 06:39] VITALS: BP 151/85; PULSE 87; RESP 17; TEMP 36.2; O2SAT 97
--- NOTE | 2024-04-13 06:51 | PC.NURSE ---
Patient has been resting in bed most of the night. Up a couple times to use the BSC, w/one person assist. CMS +, drsg CDI. Patients pain much better after oxycodone. Pt has been A&O, calm and cooperative.
[2024-04-13] MEDS: ASPIRIN EC 81 MG TABLET PO (08:33)
[2024-04-13] MEDS: DOCUSATE 100 MG CAPSULE PO (08:33)
[2024-04-13] MEDS: GABAPENTIN 100 MG CAPSULE PO (08:33)
--- NOTE | 2024-04-13 09:00 | PT.IPTN ---
Current Diagnoses Unilateral primary osteoarthritis, left hip (04/12/24) Surgery Performed Operation Date: 04/12/24 07:45 Actual Procedures p Total Hip Arthroplasty/Anterior Approach(Left) - [place] Mi MD Physical Therapy Treatment Note M2 PT-IP Current Condition Start: 04/12/24 16:05 Freq: NEEDED Status: Active Protocol: Document 04/12/24 14:50 [facility] (Rec: 04/12/24 16:18 AB [id number]) Physical Therapy Current Condition Current Condition Evaluation Date 04/12/24 Treatment Diagnosis s/p L LIZETH anterior; difficulty in walking Onset Date 04/12/24 M3 PT-IP Subjective Start: 04/12/24 16:05 Freq: NEEDED Status: Active Protocol: Document 04/13/24 09:00 [facility] (Rec: 04/13/24 12:38 AB [id number]) Subjective Physical Therapy Visit Type Type Treatment Note Visit Start Time 09:00 Visit Stop Time 10:15 Number of DRAFTER REFRIGERATION Visits 0 Physical Therapy Visit Comments Patient Comments agreeable to do PT Therapy Pain Assessment Pain When Pain Assessed At Rest Pain Present Pain Present Pain Reported Location Left Hip Intensity 5 Scale Used increases with movement Pain Management Techniques Apply Cold,Distraction, Modification of Treatment,Re- positioning,Timing of Activity with Medications M4 PT-IP Mobility and Gait Start: 04/12/24 16:05 Freq: NEEDED Status: Active Protocol: Document 04/13/24 09:00 AB (Rec: 04/13/24 12:38 AB [id number]) PT-Bed Mobility Assessment Supine to Sit Supine to Sit Moderate Assistance,1 Person Assistance,Head of Bed Elevated PT-Transfer Assessment Sit to and From Stand Sit to and from Stand Moderate Assistance,1 Person Assistance,Use of Upper Extremities Equipment Transfer Assistive Device Gait Belt,Front Wheeled Walker Orthotic/Prosthetic Devices or Brace: No Transfers Transfer Destination Chair Transfer Technique ambulated Transfer Ability Level of Assist Minimal Assistance,Moderate Assistance,1 Person Assistance ,Use of Upper Extremities Comments Mobility Comments pt supine in bed. daughter in room for caregiver training. reviewed L hip anterior precautions with pt and pt unable to recall. educated pt and daughter regarding pt's L hip anterior precautions. pt completed supine to sit mod A and cues. educated daughter on how to assist pt with bed mobility. pt sat on EOB with c/o increase hip pain. pt rested. educated pt's daughter on use of safety belt and how to assist pt. daughter was able to put safety belt on pt. assisted pt with sit to stand from EOB. PT initially provided cues and daughter was able to instruct pt afterwards. pt ambulated to the chair using fWW min to mod A and cues. pt requiring cues for safety and precautions. pt completed sit to stand from chair with ericke assisting mod A and cues. pt ambulated in the hallway ~ 50 ft using fWW min to mod A and cues. daughter was able to assist pt . stair climbing training: PT demonstrated and educated pt and daughter on how to do stairs. pt completed up/down steps holding on to L rail with B hands min to mod A and max cues. daughter was able to assist pt safely. pt completed up/down platform step using FWW mod a and cues. assisted pt back to her room. pt ambulated from w/c to chair using FWW min A and cues. positioned pt on the chair. call light and table placed within reach. educated pt and daughter regarding car transfers. pt and daughter withour further concerns. informed daughter regarding HHPT for now and agreed. protective services case worker and PA made aware of HHPT recommendation at this time. Gait Assessment Gait Gait Assistance Required: Minimum Assistance,Moderate Assistance Distance (Feet) 50 Able to Maintain Weight Bearing Status Yes During Gait Assistive Devices Assistive Device Gait Belt,Front Wheeled Walker Orthotic/Prosthetic Devices or Brace: No Gait Deviations General Gait Pattern Antalgic,Decreased Feet Clearance Factors Limiting Gait Function Factors Limiting Gait Function Decreased Activity Tolerance, Decreased Strength,Difficulty Following Directions,Limited Range of Motion,Pain,Poor Balance,Poor Safety Awareness Stair Climbing Assessment Evaluation Level of Assist On Stairs Minimal Assistance,Moderate Assistance Devices Stair Climbing Assistive Devices Front Wheel Walker,Left Railing Technique/Endurance Stair Climbing Technique Step to Step Number of Steps Climbed 3 Stair Climbing Set # Repetitions (reps) 1 Comments Stair Climbing Comments pls refer to mobility section for details M5 PT-IP Objective Assessments Start: 04/12/24 16:05 Freq: NEEDED Status: Active Protocol: Document 04/12/24 14:50 AB (Rec: 04/12/24 16:18 AB [id number]) Orientation Orientation/Cognition Level of Alertness Confusional State Orientation Name,Situation Language Function Ability No Deficits Noted Safety Awareness Decreased Safety Awareness Memory Description Short Term Impaired,[facility] Impaired Gross Range of Motion Lower Extremity ROM Assessment Within Functional Limits Strength Lower Extremity Strength Assessment Left Impaired Hip 2+/5 Knee 3+/5 Coordination Assessment Gross Coordination Gross Coordination WNL Sensation Assessment Sensation Gross Sensation WNL Muscle Tone Muscle Tone WNL Yes M6 PT-IP Treatment Start: 04/12/24 16:05 Freq: NEEDED Status: Active Protocol: Document 04/13/24 09:00 AB (Rec: 04/13/24 12:38 AB [id number]) Physical Therapy Treatment Exercises Exercises Heel Slides Education Education Provided Precautions,Safety M7 PT-IP Assessment and Plan Start: 04/12/24 16:05 Freq: NEEDED Status: Active Protocol: Document 04/13/24 09:00 AB (Rec: 04/13/24 12:38 AB [id number]) PT Summary Assessment and Plan Potential Rehabilitation Potential Fair Summary Impairments Pain,ROM,Strength,Balance, Coordination,Sensation,Tone, Cognition,Bed Mobility, Transfers,Gait,Activity Tolerance Progress Towards Goals Slow Progress due to Pain,Slow Progress due to Activity Tolerance Assessment Summary caregiver training conducted and daughter was able to safely assist pt with mobility . daughter stated that she will be staying with pt for ~ 1 month to assist her. pt may go home when medically stable . Goals Bed Mobility Goal Independent Transfer Goal Independent,Front Wheeled Walker Gait Goal Independent,Front Wheel Walker Gait Distance 150 Other Goals up/down 4 steps 1 rail SBA Days to Meet Goals 5 Frequency of Treatment Frequency Of Treatment Twice a Day Treatment Plan Physical Therapy Treatment Plan Bed Mobility Training,Transfer Training,Gait Training, Therapeutic Exercise,Balance Retraining,Post Op Education, Discharge Planning,Hot or Cold Pack,Neuromuscular Re-ed, Coordination Retraining,Manual Therapy Precautions Anterior Hip Precautions No Hip Extension,No Hip External Rotation Weight Bearing Status Weight Bearing Status Weight Bear as Tolerated Allowed Weight Bearing Amount (enter % LLE WBAT or #) (%) Recommendations To Nursing Amount of Assist Needed 1 Person Assist Discharge Recommendations PT Discharge Recommendations Home with 06/03 Assist Available,Home Health Transportation Needs at Discharge Private Vehicle
--- NOTE | 2024-04-13 10:40 | P.DS_ITS ---
History of Present Illness History of Present Illness Date Patient Seen: 04/13/24 Time Patient Seen: 10:40 Chief complaint: left LIZETH anterior *OPB* Narrative: This 84-year-old female patient had left hip arthritis and was counseled extensively regarding elective total hip arthroplasty. I obtained a DEXA scan of her left hip for preoperative planning purposes which indicated that she had a high T-score for her age, indicative of overall good bone quality. I th erefore elected to utilize uncemented fixation for her stem side during today's procedure. As she was walking into the hospital today she caught her foot on the carpet and fell, hitting her head. A rapid response was called and a CT scan of her head was obtained which was normal. I evaluated her and found her to be at her baseline mental status. Given her normal CT scan and normal neurologic status we discussed the situation with the patient and she wished to proceed with the surgery as previously scheduled. Discharge Providers Provider Date of admission: 04/12/2024 Discharge Date: 04/13/24 Primary care physician: Dolores Alcala PA-C Consults: 04/12/24 06:00 Consult to Anesthesiology Routine Comment: Consulting Provider: Anesthesiologist Reason for consultation: Regional block for post operative pain control 04/12/24 11:54 Consult to Discharge Planning Routine Comment: Consult to Occupational Therapy Evaluate & Treat Comment: Physician Instructions: Evaluate and treat Consult to Physical Therapy Evaluate & Treat Comment: Physician Instructions: post op LIZETH protocol Discharge provider: Chris Salinas PA-C Summary Hospital Course Discharge Diagnosis: Left hip osteoarthritis Hospital Course: Procedure: Left total hip arthroplasty with placement of cerclage cable for calcar split Same procedure as scheduled: Yes Surgeon: [place] [facility] [employer] Teacher: Sandra Diaz Anesthesia Type: General, Spinal and Local Operative Notes Estimated Blood Loss (mL): 350 Procedure in detail: Left Uncemented Direct Anterior Depuy Total Hip Arthroplasty: Implants: * [place] Gription size 52 cup? * Actis femoral stem size 9 high offset? * 36 mm +1.5 ceramic femoral head? Status at Discharge Cognitive/behavioral status at discharge: oriented Functional status at discharge: uses cane/walker Overall status at discharge: patient is back to baseline Time Spent with Patient Time spent: Less than 30 minutes Exam Vital Signs (past 8 hours): - 04/13/24 06:39 Temperature 97.2 F L Pulse Rate 87 Respiratory Rate 17 Blood Pressure 151/85 H Pulse Oximetry 97 Oxygen Delivery Method Room Air Narrative Exam Narrative: Patient found sitting comfortably in chair. Her hearing aids are not working appropriately but her daughter was present in the room for discussion. Pain has been controlled with oral medications. 5/5 strength in hip flexors, quadriceps, hamstrings, DF, PF, EHL bilaterally. Sensation to light touch intact throughout BLE. Calves soft, compressible, nontender. ?Dressing placed intraoperatively CDI. PFSH Medical History [place] (hard of hearing) Skin cancer Hypercholesteremia Hypothyroid Surgical History (Updated 04/05/24 @ 09:15 by Danielle Caban RN) H/O arthroscopic knee surgery History of tonsillectomy Social History household members: none Smoking Status: Former smoker alcohol intake: current Discharge Assessment & Plan Assessment and Plan Assessment: Status post left hip total arthroplasty Plan of Treatment: Discharge home with home health. Standard total hip replacement protocol with weight-bearing as tolerated With assistive devicesand anterior hip precautions Aspirin 81 mg b.i.d. for DVT prophylaxis for 6 weeks Multimodal pain management. baseline pain control with acetaminophen 500 mg q.4 hours and meloxicam 7.5 mg b.i.d.. Breakthrough pain with oxycodone 5 mg q.4 hours PRN. Mobilize with physical therapy in 5-10 days. Follow up in clinic in 2 weeks for wound check. Discharge Plan Discharge Plan Patient Disposition: Home Discharge orders & Medications Discharge Orders: Discharge (Order); Ordered 04/13/24 Ordered By: Chris Salinas Prescriptions: New aspirin 81 mg Tablet,Delayed Release (Dr/Ec) 81 mg PO BID Qty: 90 0RF Continued atorvastatin 40 mg tablet 40 mg PO DAILY levothyroxine [Synthroid] 75 mcg tablet 75 mcg PO DAILY gabapentin 100 mg capsule 100 mg PO 3XD CombiPatch 0.05-0.14 mg/24 hr patch semiweekly 1 patch transdermal 2XW acetaminophen [Tylenol] 325 mg Capsule 1,000 mg PO BEDTIME Follow up/Referrals: Dolores Alcala PA-C [Primary Care Provider] - [place] Mi MD [Physician] - (Follow up at [facility] as scheduled in 2 weeks. ) Diet/Activity/Treatments Diet: Diet as Tolerated Activity: Weightbearing as tolerated, maintain the anterior hip precautions. Cold/Heat Therapy: Ice to the hip as needed pain control Skin/Wound/Dressing Care Report to your healthcare provider any signs of infection, such as:: chills, fever, night sweats, unusual drainage and unusual redness Dressing: Keep dressing intact, clean and dry until 2 week post-op appointment. No soaking the incision site in pools or tubs. No topical ointments or creams to the incision site. Visit Report/Discharge Packet Instructions: DI for Hip Replacement, DI for Constipation, How to Prevent Falls, DI for Prescription Opioid Use Stand Alone Forms: Patient Portal/API Discharge Data Primary Care Provider: Dolores Alcala Attending Provider: [place] Mi VTE Deep Vein Thrombosis/Pulmonary Embolism Present on Admission: No
--- NOTE | 2024-04-13 13:31 | CM.DANOTE ---
Addendum entered by JORGE Beach 04/14/24 15:25: Post Discharge Note: VM from ramila Yancey Welsh P [phone] asking when chepe BONILLA will be out to see patient. Placed call to Deepti/chepe who states they did not receive the referral. Re-faxed the referral. No RN ordered so that patient could see PT 9.4-9.5 (instead of 9.9). Requested that Deepti place call to ramila Yancey to discuss start of care, Deepti agreed. Original Note: Initial DCP Assessment Note Pt is a 84 yo female, resident of [place] , now POD#1 from left LIZETH PCP: Dolores Alcala Payer: Frank [facility] Reviewed chart, pt discussed in multidisciplinary rounds this morning. Therapy has cleared pt for return home w/family to assist and pt has planned for home, DC order from [facility] has already been initiated this morning. Met w/patient and ramila Yancey, patient requests HH services, no agency preference. Placed call to [facility] and chepe ; chepe responded first. Discussed this referral and faxed face sheet, H+P, DC Summary, F2F, HH order and therapy notes to chepe BONILLA F [phone] No barriers identified at this time to patient's safe discharge home w/family to assist; HH services. JORGE Neumann Discharge Planning/Care Management CM Discharge Assessment Start: 04/13/24 13:21 Freq: Status: Active Protocol: Document 04/13/24 13:22 ODILIA (Rec: 04/13/24 13:29 [id number]) Discharge Planning Assessment Assigned Special Event Assistant JORGE Levy DPOA/Assigned Designee Name See pre-anesthesia assessment Advance Directives? Yes Advance Directives on File No History Provided By Patient,Family Member,Medical Record Prior Living Arrangements House Household Members none Type of transporation used prior to Drives own vehicle admit Independent with ADL's Yes: Mod indp, limited by hip pain Is patient alert and oriented? Yes Patient/Family Preference Home with Home Health Barriers to Discharge No Comment Home with daughter and HH, awaiting CB from [facility] vs chepe, patient lives on [place] Discharge Plan Home with Home Health Transportation Arrangement Family Referrals Initiated Home Health Additional Comment No agency preference. Pre-Anesthesia Assessment Start: 04/05/24 08:22 Freq: Status: Active Protocol: Document 04/05/24 08:22 LB (Rec: 04/05/24 09:38 LB [id number]) Pre-Anesthesia Assessment Marital Status / Lives With none Current Living Arrangements House Number of Floors (Floors) One Floor Number of Stairs To Enter/Railing? step-down living room 3 steps at front door with railing 2 step at back door with railing Support System Child/Children Does the Patient Have Assistance After Yes Surgery Patient Discharge Plan Description Return Home Additional comment depends on how I feel Feels Safe in Current Environment Yes Do you have a plan to hurt yourself or No Plan others? Do You Have Any Spiritual Beliefs That No May Affect Your HC Choices? Do You Have Any Cultural Practices That No May Affect Your HC Choices? Who Can We Speak to About Patient's Care Friends, Family Identifying Code for Release of Patient declines to issue Information Health Care Proxy/Next of Kin Bc Jackman daughter Health Care Proxy Emergency Contact Name Bc Jackman daughter Emergency Contact Advance Directives? Yes Power of Senior Administrative Associate Yes Power of Senior Administrative Associate Name Bc mcgrath Power of Senior Administrative Associate
--- NOTE | 2024-04-13 13:34 | PC.NURSE ---
Discharge: Pt feels ready to d/c to home. Seen by TOBY Gill and given d/c instructions. Seen by PT and has passed to go home. They gave their d/c instructions. Dtr was here for caregiver training. Tolerates diet w/out problems, vds w/out diff. Minimal use of pain medication. Discharge packet given and reviewed. Rx has been esent. Questions answered. Pt d/c to home via auto w/dtr. They didn't bring up any concerns.
== END 2024-04-13 13:10 | disposition home or self-care (01) ==
LOC: OR 07:39 → AC 07:39
PROVIDERS: PCP Physician Assistant; Referring Provider Family Medicine Adult Medicine; Visit Provider Orthopaedic Surgery Adult Reconstructive Orthopaedic Surgery
PROC: (CPT 27130; principal; 2024-04-12 07:45)
DX: M16.12 Unilateral primary osteoarthritis, left hip (principal); M25.752 Osteophyte, left hip; W01.198A Fall on same level from slipping, tripping and stumbling with subsequent striking against other object, initial encounter; Y92.239 Unspecified place in hospital as the place of occurrence of the external cause
CPT/HCPCS: 27130; 70450; 73502; 73503; 76000; 97162; 97165; 97530; 97535; 99281; C1776; J0690; J1170; J2704; J3010; J3410